=== PATIENT | male | born 1985 | race Caucasian/White ===

== ENCOUNTER 2019-06-03 11:40 | Observation (INO) ==
--- NOTE | 2019-06-03 07:19 | Ultrasound Report ---
CLINICAL INFORMATION: left testicle enlarged COMPARISON: None. FINDINGS: Both testes proper normal and symmetric in size, position, configuration and echotexture: The right is 4.3 x 2.8 cm and the left is 4.4 x 2.7 cm. There are no intratesticular masses and arterial blood flow is normal and symmetric on color Doppler to both testes. A 6 mm testicular appendage ejects from the inferior pole of the left testicle. These are commonly seen and, typically, clinically insignificant The left epididymis is slightly enlarged spanning 1.6 x 1.4 cm and contains multiple cysts ranging up to 4 mm. There is increased blood flow on color Doppler to the left epididymis suggesting epididymitis. The right epididymis is normal in size: 1.3 x 1.2 cm. It contains 2-3 three tiny cysts less than 2 mm. A large left hydrocele with internal echoes accounts for left testicular enlargement IMPRESSION: 1. Both testes proper unremarkable. 2. Probable left epididymitis. 3. Large left hydrocele accounting for physical exam findings of enlarged left testicle Interpreted and Authenticated by: Javy Ashraf 06/03/19
--- NOTE | 2019-06-03 09:14 | Cat Scan Report ---
CLINICAL INFORMATION: Right lower quadrant pain COMPARISON: None. TECHNIQUE: Following enteric contrast, 80 cc of Isovue-370 were injected intravenously, and 60 seconds later, 0.625 mm helical slices were obtained from the mid heart through the subtrochanteric regions. Following reconstruction, 2.5 mm sagittal, coronal and axial reformatted images were processed and reviewed at bone, lung and soft tissue windows. Five minutes later, 0.625 mm helical slices were obtained from the mid heart through the kidneys and viewed at soft tissue windows.The exam was performed using radiation dose optimization techniques including, but not limited to, automated exposure control, adjustment of the mA and/or kV according to patient size and use of iterative reconstruction technique. FINDINGS: Lung bases show no abnormality - no effusion. The visualized heart is normal. Abdominal images show the liver, gallbladder and bile ducts, both adrenal glands, spleen, pancreas and aorta, including aortic branches, are normal in size, configuration and attenuation without focal lesion. There are a few nonobstructing stones seen in both kidneys: 2 mm superior calyx right kidney, 5 mm mid calyx right kidney, and 5 mm superior calyx left kidney. There are 2-3 small cysts, less than 1 cm, in both kidneys that as well. Pelvic images show prostate, seminal vesicles and urinary bladder are unremarkable. The appendix is located inferior pericecal region is dilated spanning 10 mm with wall thickening /enhancement and inflammatory change in the periappendiceal fat. No appendicolith. A small amount of free fluid in the deep true pelvis appreciated. The stomach, small bowel, and large bowel are unremarkable. No free air or adenopathy. Bone windows show no osseous abnormality IMPRESSION: 1. Simple appendicitis. The appendix is located inferior pericecal region. 2. Small nonobstructing stones in the calyces of both kidneys Interpreted and Authenticated by: Javy Ashraf 06/03/19
[2019-06-03] MEDS ORDERED: ceFAZolin 1 GM VIAL ONE (11:47)
[2019-06-03] MEDS ORDERED: ceFAZolin 2 GM in DEXTROSE 5% IN WATER 50 ML IV SCH (12:00)
[2019-06-03] MEDS ORDERED: PROPOFOL 200 MG/20 ML VIAL IV ONE (12:06)
[2019-06-03] MEDS ORDERED: fentaNYL 100 MCG/2 ML VIAL IV ONE (12:06)
[2019-06-03] MEDS ORDERED: KETAMINE 100 MG/ML ML IV ONE (12:06)
[2019-06-03] MEDS ORDERED: MIDAZOLAM 2 MG/2 ML VIAL IV ONE (12:06)
[2019-06-03] MEDS ORDERED: PHENYLEPHRINE 10 MG/ML VIAL IV ONE (12:06)
[2019-06-03] MEDS ORDERED: ONDANSETRON 4 MG/2 ML VIAL IV ONE (12:06)
[2019-06-03] MEDS ORDERED: GLYCOPYRROLATE 0.2 MG/ML VIAL IV ONE (12:06)
[2019-06-03] MEDS ORDERED: DEXAMETHASONE 10 MG/ML VIAL IV ONE (12:06)
[2019-06-03] MEDS ORDERED: ROCURONIUM 10 MG/ML ML IV ONE (12:06)
[2019-06-03] MEDS ORDERED: LIDOCAINE HCL/PF 100 MG/5 ML SYRINGE IV ONE (12:06)
[2019-06-03] MEDS ORDERED: BUPIVACAINE W/EPI 0.5% 50 ML VIAL IJ ONE (12:25)
[2019-06-03] MEDS ORDERED: HYDROmorphone 2 MG/ML VIAL IV PRN (14:03)
[2019-06-03] MEDS ORDERED: fentaNYL 100 MCG/2 ML VIAL IV PRN (14:03)
[2019-06-03] MEDS ORDERED: ACETAMINOPHEN 1,000 MG/100 ML BOTTLE IV ONE (14:03)
[2019-06-03] MEDS ORDERED: ONDANSETRON 4 MG/2 ML VIAL IV PRN ×2 (14:03→15:04)
[2019-06-03] MEDS ORDERED: KETOROLAC 30 MG/ML VIAL IV PRN (14:03)
[2019-06-03] MEDS ORDERED: IPRATROPIUM/ALBUTEROL 3 ML AMPUL.NEB NEB PRN (14:03)
[2019-06-03] MEDS ORDERED: PROMETHAZINE 25 MG/ML VIAL IV PRN (14:03)
[2019-06-03] MEDS ORDERED: LACTATED RINGERS 1,000 ML IV SCH (14:15)
[2019-06-03] MEDS ORDERED: ACETAMINOPHEN 325 MG TABLET PO PRN (14:56)
--- NOTE | 2019-06-03 14:56 | Brief Operative Note ---
Date of procedure: 06/03/19 Pre-op diagnosis: appendicitis Post-op diagnosis: same Procedure: Laparoscopic appendectomy with drain placement Findings: Pericecal fat inflammation possible IBD Complications: other (none immediately) Surgeon: Prateek Chaves Specimens Removed/Pathology: other (appendix) Condition: stable Disposition: PACU
[2019-06-03] MEDS ORDERED: cefOXitin 2 GM in DEXTROSE 5% IN WATER 50 ML IV SCH (15:00)
[2019-06-03] MEDS: MEPERIDINE 25 MG/ML SYRINGE IV PRN ×2 (15:05→15:11)
[2019-06-03] MEDS: cefOXitin 2 GM VIAL IV SCH ×2 (15:42→23:30)
[2019-06-03] MEDS: LACTATED RINGERS 1,000 ML IV SCH ×3 (15:43→23:56)
[2019-06-03] MEDS: KETOROLAC 30 MG/ML VIAL IV PRN (15:52)
[2019-06-03] MEDS ORDERED: HYDROmorphone 2 MG/ML VIAL ONE (16:54)
[2019-06-03] MEDS: HYDROmorphone 2 MG/ML VIAL IV PRN ×2 (16:57→21:15)
[2019-06-03] MEDS: DOCUSATE SODIUM 100 MG CAPSULE PO SCH (21:16)
[2019-06-03] MEDS: 0.9 % SODIUM CHLORIDE 10 ML SYRINGE IV SCH (21:16)
[2019-06-03] MEDS: ACETAMINOPHEN 500 MG TABLET PO SCH (23:30)
[2019-06-04] MEDS: 0.9 % SODIUM CHLORIDE 10 ML SYRINGE IV SCH (05:13)
[2019-06-04] MEDS: LACTATED RINGERS 1,000 ML IV SCH (05:56)
[2019-06-04 07:00] LABS: Basophils # (Auto) 0.02 K/mcL (0.00-0.30); Basophils % (Auto) 0.2 % (0.0-2.0); Eosinophils # (Auto) 0 K/mcL (0.00-0.70); Eosinophils % (Auto) 0 % (0.0-7.0); Granulocytes % (Auto) 75.8 % (38.0-78.0); Hematocrit 42.5 % (40.1-51.0); Hemoglobin 14.1 g/dL (13.7-17.5); Lymphocytes # (Auto) 1.48 K/mcL (1.50-4.80); Lymphocytes % (Auto) 12.8 % (15.5-49.0); Mean Cell Volume 89.7 fL (80.0-100.0); Mean Corpuscular HGB Conc 33.2 g/dL (31.0-36.0); Mean Platelet Volume 9.4 fL (7.4-10.4); Monocytes % (Auto) 11.2 % (1.0-12.0); Platelet Count 236 K/mcL (140-440); RBC 4.74 M/mcL (4.63-6.08); Red Cell Distribution Width 12.1 % (11.5-14.5); WBC 11.6 K/mcL (4.50-11.00)
[2019-06-04] MEDS: cefOXitin 2 GM VIAL IV SCH (07:19)
[2019-06-04] MEDS: KETOROLAC 30 MG/ML VIAL IV PRN (07:19)
[2019-06-04] MEDS: ACETAMINOPHEN 500 MG TABLET PO SCH (07:19)
[2019-06-04] MEDS: DOCUSATE SODIUM 100 MG CAPSULE PO SCH (09:10)
--- NOTE | 2019-06-04 09:56 | Discharge Plan ---
Discharge Plan - Patient/Caregiver Discharge Instructions Discharge Summary: Mister Clancy was admitted to [facility] on 06/03/19 with abdominal pains found to be secondary to appendicitis. In the operating room he was found to have appendicitis as well as probable colitis involving the cecum. The appendix was removed. Due to the altered tissue of the stump of the appendix a percutaneous drain was left in place. Additionally for this reason he will be discharged on a week of ciprofloxacin and metronidazole. He was instructed to keep the wounds clean and that it was okay to shower. He was instructed to change the dressing on the draining site should it become wet shower. His activities are as tolerated. His diet is as tolerated. He was instructed to call the clinic on Wednesday to obtain an appointment to follow up with Dr. Shah on Wednesday or . He was instructed to call the hospital sprayer operator today are overnight should he have any questions or concerns for me. He was instructed to contact his front office help tomorrow for follow-up appointment given that it appears as though he has colitis of the cecum as well as the rectum. 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 Activity: other (as tolerated) Diet: Regular Diet Additional Instructions: please call Wednesday to schedule your follow ups as discussed Dr. Shah will be conducting your surgical follow up. Prescriptions: Ciprofloxacin [Cipro] 500 mg PO BID 7 Days #14 tab Transmission Status: Received by Testif [id number] Docusate Sodium [Colace] 100 mg PO BID #30 cap Transmission Status: Received by Testif [id number] metroNIDAZOLE [Flagyl] 500 mg PO BID 7 Days #14 tab Transmission Status: Received by Testif [id number] Ibuprofen [Motrin] 600 mg PO Q6H PRN #24 tab PRN Reason: Pain Transmission Status: Received by Testif [id number] oxyCODONE HCL [Oxycodone HCl] 5 mg PO Q3H PRN 3 Days #14 tab PRN Reason: Pain Prescription Printed - Follow up Plan Follow up with: Matthew Montero MD [Physician] - Alexa Shah MD [Physician] - (June 07 or ) Fabiana Pratt ARNP [Nurse Practitioner] - (next week or two) Disposition: Home, Self-Care Care Plan Goals: This discharge packet is provided to you to help keep you informed about your care. We want to ensure you get everything you need when you go home. You will also be receiving a call from us in a few days to follow up with you and see how you are doing since your discharge. This gives us a chance to listen to any concerns you maybe experiencing since you were discharged or any additional needs you may have, as well as providing us feedback on your care experience. We strive to always provide excellent care and thank you for your feedback and for choosing [facility]. Prognosis: Good Rehab Potential: Good I certify that the patient requires SNF services.: No Overall status at discharge: patient is progressing back to baseline
[2019-06-04] MEDS ORDERED: FLU VACC QS2019-20(6MOS UP)/PF 60 MCG/0.5 ML SYRINGE IM ONE (10:00)
[2019-06-04] MEDS ORDERED: BUPIVACAINE W/EPI 0.5% 50 ML VIAL IJ ONE (11:05)
[2019-06-04] MEDS: HYDROmorphone 2 MG/ML VIAL IV PRN (11:25)
--- NOTE | 2019-06-06 07:19 | Operative Note ---
DATE OF OPERATION: 06/03/2019 PREOPERATIVE DIAGNOSIS: Appendicitis. POSTOPERATIVE DIAGNOSIS: Appendicitis, suspect inflammation of the cecum, possibly secondary to ulcerative colitis. PROCEDURE PERFORMED: Laparoscopic appendectomy with drain placement. SURGEON: Prateek Chaves MD ANESTHESIA: General and local. DESCRIPTION OF PROCEDURE: After induction of general anesthetic, the patient's abdomen was cleaned with ChloraPrep solution prior to being sterilely draped. New periumbilical incision was made. A Veress needle was placed and the abdomen was insufflated with carbon dioxide gas. A 5 mm Visiport was then used to gain access to the abdominal cavity under direct vision. A 5 mm trocar was then placed in the left lower quadrant and a 10/12 trocar in the suprapubic position. All of these wounds were infiltrated with 0.25% Marcaine with epinephrine. The appendix was identified and noted to be tightly adherent to the sidewall of the cecum. Careful dissection was carried out to separate the appendix from the cecum. The cecum appeared to be thickened at the takeoff point of the appendix. The appendiceal mesenteric adipose tissue was thickened and indurated. The LigaSure type instrument was utilized to divide and seal the vessels. Electrocautery was used to divide hardened and thickened mesenteric fat. The cecum was minimally mobilized from its attachments to the peritoneum. An endoscopic JULY with a white load was used to come across the base of the appendix. Thicker load staplers were not available. Appendix was then placed in an EndoCatch sac and removed through the suprapubic fascial defect. It was sent for pathological examination. The operative field was examined. There was noted to be fracturing of the tissue at the staple line. For this reason 3-0 Vicryl pursestring suture was placed about the base of the appendix. This was tied down and then a loop of the Vicryl was brought around the base of the stump of the appendix and tied securely, thus giving a 2-suture ligature, Two stainless steel clips were then placed for additional opposition of the stomach tissue. Given the abnormal nature of the cecum, there was consideration of performing an ileocecectomy. It was felt, however, that likely of the abnormal tissue was related to the patient's ulcerative colonic disease known over the last couple of years. Additionally, it was felt that the risks of complications of ileocecectomy would likely be higher than that already accomplished. With this in mind, no additional surgery was entertained. A 15 Pakistani round fluted drain was then positioned in the right paracolic gutter and adjacent to the appendectomy site. Excellent hemostasis was noted. Irrigation was carried out. The drain was brought out through the left lower quadrant 5 mm trocar site. The abdomen was then desufflated. Trocars were removed under direct vision. The suprapubic fascial defect was closed using a [id number] 0 Vicryl suture. The skin wounds were closed using subcuticular 4-0 Vicryl. The drain was secured using a 4-0 nylon. The drain was placed to bulb suction. The wounds were dressed with Telfa and Tegaderm dressings. At this point, the patient was awakened, extubated, and transferred to the recovery room in stable condition. ESTIMATED BLOOD LOSS: Negligible. COMPLICATIONS: None. SPECIMEN: Appendix. DRAINS: 15 Pakistani round fluted percutaneous drain. DEN:darci Job ID: [id number] Doc ID: [id number] Prateek Montero MD
--- NOTE | 2019-06-06 14:53 | Surgical Pathology Report ---
HISTOLOGY SPECIMEN MICROSCOPIC DIAGNOSIS APPENDIX, APPENDECTOMY: -- SUPPURATIVE ACUTE APPENDICITIS WITH TRANSMURAL INFLAMMATION AND ACUTE PERITONITIS. (ACP:adj) CLINICAL HISTORY Testicular pain. PROCEDURAL IMPRESSION Appendicitis. GROSS DESCRIPTION Received in formalin labeled with the patient information, is a 7 cm long by up to 1 cm in diameter purple-hernandez appendix with up to 2 cm of attached yellow-light adipose tissue. The margin has been stapled closed. There is a 1 cm area next to the stapled margin where the surface is disrupted. There is a thickened white-light possible exudate on the surface and attached adipose tissue. The lumen contains soft pink-brown fecal material. Fixture Builder sections submitted - one cassette. (STS:sln) Electronically Signed by: Imtiaz Hyman M.D.
--- NOTE | 2019-06-27 12:57 | Emergency Department Note ---
Male Urogenital HPI - General Chief complaint: Urogenital-Male Stated complaint: testicular pain Time Seen by Provider: 06/03/19 04:56 Source: patient Mode of arrival: ambulatory Limitations: no limitations - Related Data Home Medications Medication Instructions Recorded Confirmed Mesalamine W/Cleansing Wipes 4 g RC QHS 06/03/19 06/19/19 [Mesalamine 4 gm/60 ml Kit] Previous Rx's Medication Instructions Recorded Acetaminophen [Tylenol] 1,000 mg PO Q8H PRN #0 tab 06/04/19 Docusate Sodium [Colace] 100 mg PO BID #30 cap 06/04/19 Ibuprofen [Motrin] 600 mg PO Q6H PRN #24 tab 06/04/19 Allergies Allergy/AdvReac Type Severity Reaction Status Date / Time No Known Drug Allergies Allergy Verified 06/19/19 09:32 Past Medical History - Past Medical History Medical history: Reports: other (Proctitis) Surgical history ED: Reports: other (Bladder polyp removal as a toddler) - Social History smoking status: Never smoker Physical Exam Limitations: no limitations Course - Reevaluation(s) Reevaluation #1: Patient signed out to me at 9 AM up. He did receive 1 hydrocodone tablets for his discomfort. In further reviewing his history, he does report right lower quadrant abdominal pain that started last night, coincidentally, he has a hydrocele on the left side. I do not think this is tender on exam and I do not think this is causing his right lower quadrant abdominal pain. CT scan of the abdomen and pelvis was done showing what may be a simple appendicitis. The. He does have kidney stones as well. On the right side and urinalysis is pending at this time. I spoke with the surgeon car sales consultant, Dr. Chaves and he will be in to evaluate the patient. Reevaluation #2: 1000 Dr Chaves in for eval. Reevaluation #3: Discussed with Dr. Vargas, also general surgeon and at this point, he will be admitted to hospital for surgery. Final diagnosis acute appendicitis Vital Signs Temperature 98.5 F 06/03/19 04:53 Pulse Rate 78 06/03/19 04:53 Respiratory Rate 16 06/03/19 04:53 Blood Pressure 143/93 06/03/19 04:53 Pulse Oximetry (%) 95 06/03/19 04:53 Temperature 98.5 F 06/03/19 04:53 Pulse Rate 88 06/03/19 10:39 Respiratory Rate 16 06/03/19 04:53 Blood Pressure 133/96 06/03/19 10:39 Pulse Oximetry (%) 94 06/03/19 10:39 Urogenital-Male - MDM Narrative Medical decision making narrative: Impression is right lower quadrant abdominal pain and left-sided hydrocele in the scrotum, acute appendicitis - Lab Data Lab results reviewed: Yes I reviewed the patient's lab results. Result diagrams: 06/04/19 06:00 Lab Results 06/03/19 06/03/19 06/03/19 Range/Units 07:26 07:26 07:44 WBC 9.2 (4.50-11.00) K/mcL RBC 5.23 (4.63-6.08) M/mcL Hgb 15.7 (13.7-17.5) g/dL Hct 45.8 (40.1-51.0) % POC Hct (41.0-55.0) % MCV 87.6 (80.0-100.0) fL MCH 30.0 (26.0-34.0) pg MCHC 34.3 (31.0-36.0) g/dL RDW 12.1 (11.5-14.5) % Plt Count 202 (140-440) K/mcL MPV 9.3 (7.4-10.4) fL Gran % 63.9 (38.0-78.0) % Lymph % (Auto) 21.0 (15.5-49.0) % George % (Auto) 11.4 (1.0-12.0) % Eos % (Auto) 2.8 (0.0-7.0) % Baso % (Auto) 0.9 (0.0-2.0) % Gran # 5.87 (1.80-8.00) K/mcL Lymph # (Auto) 1.93 (1.50-4.80) K/mcL George # (Auto) 1.05 H (0.10-0.90) K/mcL Eos # (Auto) 0.26 (0.00-0.70) K/mcL Baso # (Auto) 0.08 (0.00-0.30) K/mcL ESR 13 (0-15) mm/hr POC Sodium (133-145) mmol/L Sodium (133-145) mmol/L POC Potassium (3.3-5.1) mmol/L Potassium (3.3-5.1) mmol/L POC Chloride (96-108) mmol/L Chloride (96-108) mmol/L Carbon Dioxide (22-30) mmol/L POC Total CO2 (22-30) mmol/L Anion Gap (8-16) POC BUN (6-20) mg/dl BUN (6-20) mg/dl Creatinine (0.7-1.2) mg/dl POC Creatinine (0.7-1.2) mg/dl GFR Calculation Glucose (70-105) mg/dL POC Glucose (70-105) mg/dL Calcium (8.6-10.4) mg/dl POC WB Ioniz Calcium (1.16-1.32) mmol/L Total Bilirubin (0.0-1.0) mg/dL AST (0-37) U/l ALT (0-40) U/l Alkaline Phosphatase (39-117) U/L C-Reactive Protein 2.1 H (0.0-0.8) mg/dl Total Protein (5.9-8.4) gm/dL Albumin (3.2-5.2) gm/dL Globulin (2.2-3.7) gm/dL Albumin/Globulin Ratio (1.0-2.3) 06/03/19 Range/Units 07:44 WBC (4.50-11.00) K/mcL RBC (4.63-6.08) M/mcL Hgb (13.7-17.5) g/dL Hct (40.1-51.0) % POC Hct 46.0 (41.0-55.0) % MCV (80.0-100.0) fL MCH (26.0-34.0) pg MCHC (31.0-36.0) g/dL RDW (11.5-14.5) % Plt Count (140-440) K/mcL MPV (7.4-10.4) fL Gran % (38.0-78.0) % Lymph % (Auto) (15.5-49.0) % George % (Auto) (1.0-12.0) % Eos % (Auto) (0.0-7.0) % Baso % (Auto) (0.0-2.0) % Gran # (1.80-8.00) K/mcL Lymph # (Auto) (1.50-4.80) K/mcL George # (Auto) (0.10-0.90) K/mcL Eos # (Auto) (0.00-0.70) K/mcL Baso # (Auto) (0.00-0.30) K/mcL ESR (0-15) mm/hr POC Sodium 139 (133-145) mmol/L Sodium 138 (133-145) mmol/L POC Potassium 4.0 (3.3-5.1) mmol/L Potassium 4.0 (3.3-5.1) mmol/L POC Chloride 103 (96-108) mmol/L Chloride 99 (96-108) mmol/L Carbon Dioxide 23 (22-30) mmol/L POC Total CO2 25 (22-30) mmol/L Anion Gap 16.0 (8-16) POC BUN 17 (6-20) mg/dl BUN 16 (6-20) mg/dl Creatinine 1.0 (0.7-1.2) mg/dl POC Creatinine 1.2 (0.7-1.2) mg/dl GFR Calculation 98 Glucose 90 (70-105) mg/dL POC Glucose 93 (70-105) mg/dL Calcium 9.5 (8.6-10.4) mg/dl POC WB Ioniz Calcium 1.22 (1.16-1.32) mmol/L Total Bilirubin 0.6 (0.0-1.0) mg/dL AST 16 (0-37) U/l ALT 20 (0-40) U/l Alkaline Phosphatase 89 (39-117) U/L C-Reactive Protein (0.0-0.8) mg/dl Total Protein 7.2 (5.9-8.4) gm/dL Albumin 4.6 (3.2-5.2) gm/dL Globulin 2.6 (2.2-3.7) gm/dL Albumin/Globulin Ratio 1.8 (1.0-2.3) Disposition Pt seen by BLASTING HELPER/PA only: No Disposition: Home, Self-Care Condition: Good
== END 2019-06-04 12:26 | disposition home or self-care (01) ==
LOC: MEDSUR 11:40 → SUR 11:40
PROVIDERS: ADMIT Surgery; ATTEND Surgery